=== PATIENT | male | born 1960 | race Caucasian/White ===

== ENCOUNTER → 2021-02-10 11:27 | Outpatient (CLI) | payer OTHER, SELFPAY ==
[2021-02-10 15:26] LABS: Anion Gap 4 (5-15); BUN 11 mg/dL (7-18); BUN/Creat Ratio 10.4 RATIO (10-20); Calcium,Total 9.5 mg/dL (8.5-10.1); Chloride 107 mmol/L (98-107); Cholesterol 238 mg/dL (200); Creatinine, Serum 1.06 mg/dL (0.70-1.30); EST Glomerular Filtration Rate 75 mL/min (>60); Est Glom Filt Rate - Afr Amer 91 mL/min (>60); Glucose 83 mg/dL (74-106); High Density Lipoprotein 55 mg/dL; Potassium 3.7 mmol/L (3.5-5.1); Sodium Level 138 mmol/L (136-145); Thyroid Stim Hormone (TSH) 4.38 uIU/mL (0.358-3.74); Triglycerides 109 mg/dL; Very Low Density Lipoprotein 22 mg/dL (5-40)
[2021-02-11 12:06] LABS: Vitamin D,25 Hydroxy 30.1 ng/mL
== END ==
PROVIDERS: PCP Family Medicine; Referring Provider Family Medicine; Visit Provider Family Medicine
DX: Z00.00 Encounter for general adult medical examination without abnormal findings (principal)
CPT/HCPCS: 36415; 80048; 80061; 82306; 84403; 84443

== ENCOUNTER 2021-03-05 07:19 | Day surgery (SDC) | payer OTHER, SELFPAY ==
[2021-03-05] MEDS: Lactated Ringers 1,000 ML 100 ML IV (07:25)
[2021-03-05 07:40] VITALS: BP 146/86; PULSE 63; RESP 16; TEMP 36.5; O2SAT 97; BMI 25.0
--- NOTE | 2021-03-05 08:03 | H&P.OPEN ---
HPI - General HPI Narrative GEORGES JOSHUA, is a 60 M who presents for screening colonoscopy. His last colonoscopy was 5 years ago and multiple polyps were identified and was recommended for 5-year repeat. Patient is not having any abdominal pain or blood in his stool. He has no family history of colon cancer. [facility] Medical History (Updated 03/05/21 @ 08:[address] David Martel MD) ADHD Alcohol use Smokeless tobacco use Wears glasses Home Medications dextroamphetamine-amphetamine [Adderall] 15 mg PO BID 03/03/21 [History Last Taken Unknown] Allergy/AdvReac Type Severity Reaction Status Date / Time No Known Allergies Allergy Verified 03/03/21 11:53 Surgical History (Updated 03/03/21 @ 12:00 by Rachel Mckinley) H/O cystoscopy Hx of colonoscopy Social History Smoking Status: Current some day smoker tobacco type: smokeless tobacco Past Medical/Surgical History Planned Operation Planned Operative Procedure/s: COLONOSCOPY OPEN ACCESS Previous Hospitalizations/Surgeries HX Hospitalizations: No Any Problems With Anesthesia: No You/Your Family Experience Fever (Hyperthermia) With Anes: No Cholinesterase deficiency: No Cardiovascular Hx of Irregular Heartbeat and/or Afib: No Hx Heart Attack: No Hx Congestive Heart Failure: No Hx Hypertension: No Hx Internal Defibrillator: No Hx Pacemaker: No Respiratory Hx Chronic Obstructive Pulmonary Disease (COPD): No Hx Asthma: No Hx Emphysema: No Hx Sleep Apnea: No Hx Respiratory Tract Infection/Cold (presently): No Do You Snore Loudly (louder than talking or can be heard): Yes Do You Often Feel Tired/ Fatigued/ Sleepy Dring Daytime?: No Has Anyone Observed You Stop Breathing During Sleep?: No Result (for STOP score): Negative Smoking Status: Current some day smoker Gastrointestinal Hx Gastroesophageal Reflux: No Hx Ulcer: No Neurological Hx Seizures: No Hx Multiple Sclerosis: No Hx Parkinson's Disease: No Hx Head/Neck Injury: No Hx Headaches: No Hx Back Injury/Pain: No Does patient have nerve stimulator: No Reproduction : No Psycho/Social Hx Anxiety: No Hx Depression: No Miscellaneous Recent Exposure to Contagious Disease: No Allergies No Known Allergies Allergy (Verified 03/03/21 11:53) Discharge Is Pt Admitted From a Halfway, or a Half-Way: No After D/C, Where Do you Plan to Go: Return Home Vital Signs Vital Signs Vital Signs: 03/05/21 07:40 Temperature 97.7 F L Temperature Source Temporal Pulse Rate 63 Respiratory Rate 16 Respiratory Pattern Normal Blood Pressure 146/86 H Blood Pressure Mean 106 Blood Pressure Source Monitor Blood Pressure Position Semi-Fowlers Blood Pressure Location Right Arm Pulse Ox 97 Oxygen Delivery Method Room Air Weight Weight: 179 lb 0.246 oz Body Mass Index (BMI) 25.0 Physical Exam Const alert and oriented x3 Resp normal respiratory effort and normal air movement Cardio regular rate and regular rhythm GI soft to palpation, non-tender and non-distended Assessment & Plan Assessment/Plan (1) Screen for colon cancer: PLAN: Patient here for screening colonoscopy. I explained endoscopy in detail to the patient. I explained the risks including but not limited to stroke or heart attack with anesthesia, perforation of the GI tract, bleeding, infection. I explained that any of these could necessitate further emergency surgery. The patient understands and all questions were answered sufficiently. The patient wishes to proceed with procedure. David Maretl MD Pager: [facility] [address] [place] [address] [address] [place] [address] Office: Surgery Risks - Colonoscopy Risks Include but are not Limited To: Risks include but are not limited to: Bleeding, perforation requiring further surgery, inability to complete colonoscopy requiring barium enema.
--- NOTE | 2021-03-05 08:30 | COLBX_PTH ---
PATIENT: GEORGES JOSHUA LOC: EN U#:[id number] AGE/SX: 60/M ROOM: RE03/05/[address]: Dr. David Martel MD : 1960 BED: DIS: 03/05/2021 SPEC #: [id number] RECD: 03/05/21 10:29 STATUS: LAVON RESushil #: [id number] RASHI: 03/05/21 08:[address]: David Martel DEPT: SURGICAL PATHOLOGY RECD BY: Italo Boyle ENTERED: 03/05/21 11:45 SP TYPE: COLON BX OTHR DR: Dr. Jonh Mcrae MD Tissues: Descending colon Procedures: Surgery Specimen Level IV HEADER OPERATION: Colonoscopy ? open access (MAC) PRE-OP DIAGNOSIS: Screening colonoscopy TISSUE SUBMITTED: Descending colon polyp MICROSCOPIC DIAGNOSIS Descending colon polyp, biopsy: Tubular adenoma. AM:merry 03/08/2021 COMMENT Case has been reviewed in consultation with Dr. Herndon who concurs with the above diagnosis. IDC:HARRY MICROSCOPIC DESCRIPTION Slides are reviewed. GROSS DESCRIPTION Received in fixative is one container labeled with the patient's name and designated descending colon polyp. The specimen consists of a piece of zavala-pink polyp measuring 0.4 x 0.4 x 0.3 cm. The specimen is totally submitted in one cassette. / HARRY:merry 03/05/21 TC:5 CPT: 21516
[2021-03-05 08:46] VITALS: BP 121/76; BP 140/86; PULSE 58; RESP 16; TEMP 36.6; O2SAT 98
[2021-03-05 08:50] VITALS: BP 119/78; BP 140/86; PULSE 70; RESP 16; O2SAT 97
[2021-03-05 08:55] VITALS: BP 119/77; BP 140/86; PULSE 55; RESP 16; O2SAT 97
[2021-03-05 09:00] VITALS: BP 126/77; BP 140/86; PULSE 63; RESP 16; TEMP 36.4; O2SAT 96
[2021-03-05 09:35] VITALS: BP 140/86
--- NOTE | 2021-03-05 12:12 | OP.COLON_ITS ---
Patient Name: Tree Still Procedure Date: 03/05/2021 8:10 AM Date of : 1960 Age: 60 Procedure: Colonoscopy Indications: High risk colon cancer surveillance: Personal history of colonic polyps Providers: David Martel MD Medicines: Monitored Anesthesia Care Patient Profile: This is a 60 year old male. Refer to note in patient chart for documentation of history and physical. Last Colonoscopy: 5 years ago. Complications: No immediate complications. Procedure: Pre-Anesthesia Assessment: - Prior to the procedure, a History and Physical was performed, and patient medications and allergies were reviewed. The patient's tolerance of previous anesthesia was also reviewed. The risks and benefits of the procedure and the sedation options and risks were discussed with the patient. All questions were answered, and informed consent was obtained. Prior Anticoagulants: The patient has taken no previous anticoagulant or antiplatelet agents. After reviewing the risks and benefits, the patient was deemed in satisfactory condition to undergo the procedure. After I obtained informed consent, the scope was passed under direct vision. Throughout the procedure, the patient's blood pressure, pulse, and oxygen saturations were monitored continuously. The colonoscope was introduced through the anus and advanced to the cecum, identified by appendiceal orifice and ileocecal valve. The colonoscopy was performed without difficulty. The patient tolerated the procedure well. The quality of the bowel preparation was good. Scope In: 8:27:19 AM Scope Withdrawal Time 0 hours 8 minutes 53 seconds Scope Out: 8:42:28 AM Total Procedure Duration Time 0 hours 15 minutes 9 seconds Findings: A small polyp was found in the descending colon. The polyp was removed with a hot snare. Resection and retrieval were complete. The exam was otherwise without abnormality on direct and retroflexion views. Impression: - One small polyp in the descending colon, removed with a hot snare. Resected and retrieved. - The examination was otherwise normal on direct and retroflexion views. Recommendation: - Discharge patient to home. - Resume previous diet. - Continue present medications. - Await pathology results. - Repeat colonoscopy in 5 years for surveillance based on pathology results. Procedure Code(s): --- Professional --- 59573, Colonoscopy, flexible; with removal of tumor(s), polyp(s), or other lesion(s) by snare technique Diagnosis Code(s): --- Professional --- Z86.010, Personal history of colonic polyps D12.4, Benign neoplasm of descending colon CPT copyright 2017 [employer]. All rights reserved. The codes documented in this report are preliminary and upon supply chain technician review may be revised to meet current compliance requirements. David Martel MD 03/05/2021 8:44:59 AM This report has been signed electronically. Number of Addenda: 0 Note Initiated On: 03/05/2021 8:10 AM
--- NOTE | 2021-03-05 12:12 | OP.CCLET_ITS ---
03/05/2021 Jnoh Mcrae MD [address] [id number] Re : Colonoscopy procedure for Tree Still Dear Dr. Mcrae This procedure was performed on Friday, March 05, 2021. My impressions and recommendations are as follows: Impressions : - One small polyp in the descending colon, removed with a hot snare. Resected and retrieved. - The examination was otherwise normal on direct and retroflexion views. Recommendations : - Discharge patient to home. - Resume previous diet. - Continue present medications. - Await pathology results. - Repeat colonoscopy in 5 years for surveillance based on pathology results. My findings are described in the full procedure note, which is enclosed. If I can be of further assistance, please feel free to contact me at Doctor phone number(s): , Work: . Sincerely, David Martel MD 03/05/2021 8:44:59 AM This report has been signed electronically.
== END 2021-03-05 09:46 ==
LOC: EN 07:19 → AC 07:20
PROVIDERS: PCP Family Medicine; Referring Provider Surgery; Visit Provider Surgery
PROC: 0DJD8ZZ Inspection of Lower Intestinal Tract, Via Natural or Artificial Opening Endoscopic (ICD-10-PCS; CPT 45378; principal; 2021-03-05 08:25)
DX: Z12.11 Encounter for screening for malignant neoplasm of colon (principal); D12.4 Benign neoplasm of descending colon; Z86.010 Personal history of colon polyps; F90.9 Attention-deficit hyperactivity disorder, unspecified type; F17.200 Nicotine dependence, unspecified, uncomplicated
CPT/HCPCS: 45385; 87426; 88305; C9803; J7120; J2405

== ENCOUNTER → 2022-08-25 | Outpatient (CLI) | payer OTHER, SELFPAY ==
[2022-08-25 10:01] LABS: Absolute Lymphocyte Count 1.18 X10^3/uL (0.83-4.51); Absolute Neutrophil Count 3.3 X10^3/uL (2.0-7.7); Basophil# 0.04 X10^3/uL; Basophil% 0.7 % (0-1); Eosinophil# 0.26 X10^3/uL; Eosinophils% 4.7 % (0-5); Hemoglobin 15.7 g/dL (13.0-16.5); Lymphocyte # 1.18 X10^3/ul (0.83-4.51); Lymphocyte % 21.5 % (19-41); Mean Corp Hgb Conc 33.4 g/dL (32-36); Mean Corpuscular Volume 92.9 fL (80-94); Mean Platelet Vol. 9.2 fl (6.2-12.0); Monocyte# 0.67 X10^3/uL; Monocyte% 12.2 % (0-10); NRBC Flagged by Analyzer 0 % (0-5); Neutrophil # 3.32 X10^3/uL (2.7-7.7); Neutrophil % 60.4 % (47-70); Platelet Count 214 K/mm3 (150-450); RBC Distribution Width CV 12.1 % (11.6-14.6); RBC Distribution Width SD 41.6 fl (35.1-43.9); Red Blood Count 5.06 M/mm3 (4.6-6.2); White Blood Count 5.5 K/mm3 (4.4-11.0)
[2022-08-25 11:21] LABS: ALB/GLOB Ratio 1.2 RATIO (0.9-2.4); AST(SGOT) 15 U/L (15-37); Alanine Aminotransfer ALT/SGPT 19 U/L (16-61); Albumin, Serum 3.8 g/dL (3.2-5.0); Alkaline Phosphatase 65 U/L (45-117); Anion Gap 8 (5-15); BUN 13 mg/dL (7-18); BUN/Creat Ratio 11.5 RATIO (10-20); Calcium,Total 9.9 mg/dL (8.5-10.1); Chloride 105 mmol/L (98-107); Cholesterol 250 mg/dL (200); Creatinine, Serum 1.13 mg/dL (0.70-1.30); EST Glomerular Filtration Rate 70 mL/min (>60); Est Glom Filt Rate - Afr Amer 84 mL/min (>60); Globulin 3.2 g/dL (2.2-4.2); Glucose 93 mg/dL (74-106); High Density Lipoprotein 52 mg/dL; PSA,Total - Annual Screen 0.87 ng/mL (0.00-4.00); Potassium 4.2 mmol/L (3.5-5.1); Sodium Level 138 mmol/L (136-145); Triglycerides 86 mg/dL; Very Low Density Lipoprotein 17 mg/dL (5-40)
== END | disposition home or self-care (01) ==
LOC: MFPLAB 08:57
PROVIDERS: PCP Family Medicine; Referring Provider Family Medicine; Visit Provider Family Medicine
DX: Z00.00 Encounter for general adult medical examination without abnormal findings (principal); R53.83 Other fatigue; V70.0XXA Driver of bus injured in collision with pedestrian or animal in nontraffic accident, initial encounter
CPT/HCPCS: 36415; 80053; 80061; 84153; 84403; 85025; G0103

== ENCOUNTER → 2023-11-09 | Outpatient (CLI) | payer OTHER, SELFPAY ==
--- NOTE | 2023-11-09 12:52 | CT_ITS ---
STUDY: CT ABDOMEN AND PELVIS WITH CONTRAST REASON FOR EXAM: Male, 62 years old. Unspecified abdominal pain RADIATION DOSAGE (If Supplied By Facility): CTDIvol = ( 14.24 ) mGy, DLP = ( 668.99 ) mGycm TECHNIQUE: Transaxial images were obtained from the dome of the diaphragm to the symphysis pubis without oral contrast. IV 100mL Isovue-300 was administered. Sagittal and coronal images were reconstructed. Individualized dose optimization techniques were used for this CT. COMPARISON: None. FINDINGS: The visualized lung bases are unremarkable. Coronary artery calcification. Normal liver. Normal gallbladder and extrahepatic biliary system. Normal spleen. Normal pancreas. Normal bilateral adrenal glands. Normal right kidney. Normal left kidney. Normal visualized stomach. Normal small intestine. There is circumferential wall thickening with increased markings in the surrounding peritoneal fat in the sigmoid colon. Diverticulosis is seen. A neoplastic process should be ruled out although sigmoid diverticulitis should be considered. Radiographic follow-up is recommended. The appendix is visualized and appears normal. There is scattered atherosclerotic calcification of the abdominal aorta, without a demonstrated aneurysm. Normal inferior vena cava. There is a small retroperitoneal lymphadenopathy with enlarged nodes no greater than 10mm in the short axis diameter. Distended urinary bladder. There is a 3.1 cm x 4.3 cm diverticulum of the urinary bladder posteriorly. There is a small umbilical hernia containing fat. There are minimal degenerative changes of the visualized lumbar spine. CT/Abdomen/Pelvis WITH Contrast IMPRESSION: Circumferential wall thickening with a very colonic inflammatory changes seen in the region of the sigmoid colon as described. Diverticula are seen. A neoplastic process should be ruled out although diverticulitis should be a possibility. Radiographic follow-up recommended. Distended urinary bladder. It is also evidence of a posterior bladder diverticulum. Electronically Signed: Alex Peterson MD at 13:27 EST ,
[2023-11-09 13:08] LABS: CREATININE FINGERSTICK 1.2 mg/dL (0.70-1.30); EGFR FINGERSTICK > 60.0000 mL/min (>60)
== END | disposition home or self-care (01) ==
PROVIDERS: PCP Family Medicine; Referring Provider Family Medicine; Visit Provider Family Medicine
DX: R10.9 Unspecified abdominal pain (principal)
CPT/HCPCS: 74177; Q9967

== ENCOUNTER → 2023-11-09 | Outpatient (CLI) | payer OTHER, SELFPAY ==
[2023-11-09 14:32] LABS: Absolute Lymphocyte Count 0.96 X10^3/uL (0.83-4.51); Absolute Neutrophil Count 5.7 X10^3/uL (2.0-7.7); Basophil# 0.04 X10^3/uL; Basophil% 0.5 % (0-1); Eosinophil# 0.13 X10^3/uL; Eosinophils% 1.7 % (0-5); Hematocrit 45.5 % (40-54); Lymphocyte # 0.96 X10^3/ul (0.83-4.51); Lymphocyte % 12.6 % (19-41); Mean Corpuscular Hgb 31.1 pg (27.0-32.0); Mean Corpuscular Volume 94.4 fL (80-94); Mean Platelet Vol. 9.7 fl (6.2-12.0); Monocyte# 0.77 X10^3/uL; Monocyte% 10.1 % (0-10); NRBC Flagged by Analyzer 0 % (0-5); Neutrophil % 74.7 % (47-70); Platelet Count 206 K/mm3 (150-450); RBC Distribution Width SD 41.9 fl (35.1-43.9); Red Blood Count 4.82 M/mm3 (4.6-6.2); White Blood Count 7.6 K/mm3 (4.4-11.0)
[2023-11-09 14:45] LABS: ALB/GLOB Ratio 0.9 RATIO (0.9-2.4); AST(SGOT) 14 U/L (15-37); Alanine Aminotransfer ALT/SGPT 23 U/L (16-61); Albumin, Serum 3.5 g/dL (3.2-5.0); Alkaline Phosphatase 68 U/L (45-117); Anion Gap 5 (5-15); BUN 14 mg/dL (7-18); BUN/Creat Ratio 12.7 RATIO (10-20); Chloride 105 mmol/L (98-107); EST Glomerular Filtration Rate 71 mL/min (>60); Est Glom Filt Rate - Afr Amer 86 mL/min (>60); Globulin 3.7 g/dL (2.2-4.2); Glucose 98 mg/dL (74-106); Potassium 4.1 mmol/L (3.5-5.1); Protein, Total 7.2 g/dL (6.4-8.2); Sodium Level 139 mmol/L (136-145)
== END | disposition home or self-care (01) ==
LOC: MFPLAB 11:49
PROVIDERS: PCP Family Medicine; Visit Provider Family Medicine
DX: R10.9 Unspecified abdominal pain (principal)
CPT/HCPCS: 36415; 80053; 85025

== ENCOUNTER 2024-07-21 18:07 | Inpatient (IN) | payer OTHER, MEDICARE, SELFPAY ==
[2024-07-21 18:07] VITALS: BP 125/76; PULSE 99; RESP 18; TEMP 37.1; O2SAT 98; BMI 25.3
[2024-07-21 18:32] LABS: Bacteria 0 SEEN /hpf (None Seen); Mucous, Urine 0 SEEN /hpf (<or=2+); Red Blood Cells-Urine 0 SEEN /hpf (0-5); Squamous Epithelial Cells - UA 0 SEEN /hpf (0-5); White Blood Cells 0 SEEN /hpf (0-5)
[2024-07-21 18:33] LABS: Color, Urine Yellow (Yellow); Glucose, Dipstick Normal (Normal); Ketone-Dipstick 5 mg/dl (Negative); Leukocyte Esterase-Dipstick Negative /ul (Negative); Nitrite-Dipstick Negative (Negative); Occult Blood-Urine Negative /ul (Negative); Protein-Dipstick Negative (Negative); Urine Bilirubin Dipstick Negative (Negative); Urine Clarity Clear (Clear); Urine Urobilinogen Normal (Normal)
[2024-07-21 19:11] LABS: Absolute Lymphocyte Count 1.06 X10^3/uL (0.83-4.51); Basophil# 0.03 X10^3/uL; Basophil% 0.3 % (0-1); Eosinophil# 0.13 X10^3/uL; Eosinophils% 1.2 % (0-5); Hematocrit 44.5 % (40-54); Hemoglobin 15.2 g/dL (13.0-16.5); Lymphocyte # 1.06 X10^3/ul (0.83-4.51); Lymphocyte % 9.6 % (19-41); Mean Corp Hgb Conc 34.2 g/dL (32-36); Mean Corpuscular Hgb 31.7 pg (27.0-32.0); Mean Corpuscular Volume 92.7 fL (80-94); Monocyte# 0.83 X10^3/uL; Monocyte% 7.5 % (0-10); NRBC Flagged by Analyzer 0 % (0-5); Neutrophil # 8.99 X10^3/uL (2.7-7.7); Neutrophil % 81.1 % (47-70); Platelet Count 179 K/mm3 (150-450); RBC Distribution Width CV 12.8 % (11.6-14.6); RBC Distribution Width SD 43.7 fl (35.1-43.9); White Blood Count 11.1 K/mm3 (4.4-11.0)
[2024-07-21 19:22] LABS: Anion Gap 5 (5-15); BUN 17 mg/dL (7-18); BUN/Creat Ratio 13.5 RATIO (10-20); Calcium,Total 9.7 mg/dL (8.5-10.1); Chloride 108 mmol/L (98-107); Creatinine, Serum 1.26 mg/dL (0.70-1.30); EST Glomerular Filtration Rate 61 mL/min (>60); Est Glom Filt Rate - Afr Amer 74 mL/min (>60); Estimated Creatinine Clearance 62.25 ml/min; Glucose 132 mg/dL (74-106); Potassium 4.3 mmol/L (3.5-5.1); Sodium Level 141 mmol/L (136-145)
[2024-07-21] MEDS: Ketorolac 15 MG/ML Vial IV ×2 (19:38→23:12)
[2024-07-21] MEDS: Ondansetron 4 MG/2 ML Vial IV (21:11)
[2024-07-21] MEDS: Morphine 4 MG/ML Syringe IV (21:11)
[2024-07-21] MEDS: Piperacil/Tazobactam 3.375 GM in 0.9% Normal Saline (50mL MB+) 50 ML IV (21:13)
[2024-07-21 21:40] VITALS: BMI 25.4
[2024-07-21 21:47] VITALS: BP 110/63; PULSE 89; RESP 18; TEMP 37.5; O2SAT 100
[2024-07-21 21:48] LABS: PSA,Total - Annual Screen 0.65 ng/mL (0.00-4.00)
[2024-07-21] MEDS: 0.9% Normal Saline (1000mL) 1,000 ML 70 ML IV (22:03)
[2024-07-22] MEDS: Piperacil/Tazobactam 3.375 GM in 0.9% Normal Saline (50mL MB+) 50 ML IV ×3 (05:41→22:39)
[2024-07-22 05:48] VITALS: BP 110/67; PULSE 81; RESP 16; TEMP 37.2; O2SAT 94
[2024-07-22 05:58] VITALS: BMI 25.3
[2024-07-22 06:58] LABS: Absolute Lymphocyte Count 0.93 X10^3/uL (0.83-4.51); Absolute Neutrophil Count 8.3 X10^3/uL (2.0-7.7); Basophil# 0.03 X10^3/uL; Basophil% 0.3 % (0-1); Eosinophil# 0.08 X10^3/uL; Eosinophils% 0.8 % (0-5); Hematocrit 42.8 % (40-54); Hemoglobin 14.5 g/dL (13.0-16.5); Lymphocyte # 0.93 X10^3/ul (0.83-4.51); Mean Corp Hgb Conc 33.9 g/dL (32-36); Mean Corpuscular Hgb 31.5 pg (27.0-32.0); Mean Platelet Vol. 9.2 fl (6.2-12.0); Monocyte# 0.98 X10^3/uL; Monocyte% 9.5 % (0-10); NRBC Flagged by Analyzer 0 % (0-5); Neutrophil # 8.26 X10^3/uL (2.7-7.7); Neutrophil % 80.1 % (47-70); Platelet Count 159 K/mm3 (150-450); RBC Distribution Width SD 44.3 fl (35.1-43.9); White Blood Count 10.3 K/mm3 (4.4-11.0)
[2024-07-22 07:57] LABS: AST(SGOT) 14 U/L (15-37); Alanine Aminotransfer ALT/SGPT 16 U/L (16-61); Albumin, Serum 3.2 g/dL (3.2-5.0); Alkaline Phosphatase 55 U/L (45-117); Anion Gap 4 (5-15); BUN 16 mg/dL (7-18); BUN/Creat Ratio 13.8 RATIO (10-20); Calcium,Total 8.7 mg/dL (8.5-10.1); Chloride 110 mmol/L (98-107); Creatinine, Serum 1.16 mg/dL (0.70-1.30); EST Glomerular Filtration Rate 67 mL/min (>60); Est Glom Filt Rate - Afr Amer 81 mL/min (>60); Estimated Creatinine Clearance 65.55 ml/min; Globulin 3.1 g/dL (2.2-4.2); Glucose 115 mg/dL (74-106); Magnesium 2.3 mg/dL (1.6-2.6); Phosphorus 1.9 mg/dL (2.5-4.9); Potassium 3.9 mmol/L (3.5-5.1); Protein, Total 6.3 g/dL (6.4-8.2); Sodium Level 140 mmol/L (136-145)
[2024-07-22 08:40] VITALS: BP 91/65; PULSE 74; RESP 15; TEMP 37.3; O2SAT 94
[2024-07-22] MEDS: 0.9% Normal Saline (500mL Bag) 500 ML 15 ML IV (10:00)
[2024-07-22] MEDS: Potassium Phosphate 40 MM in 0.9% Normal Saline (500mL Bag) 500 ML 62.5 MM IV (11:08)
[2024-07-22] MEDS: Enoxaparin 40 MG/0.4 ML Syringe SC (11:09)
[2024-07-22] MEDS: Tamsulosin HCl 0.4 MG Capsule PO (11:13)
[2024-07-22 11:30] VITALS: O2SAT 96
[2024-07-22 14:16] VITALS: BP 105/61; PULSE 81; RESP 18; TEMP 38.4
[2024-07-22] MEDS: 0.9% Saline Lock 10 ML Syringe IV (14:26)
[2024-07-22] MEDS: Ketorolac 15 MG/ML Vial IV ×2 (14:26→22:38)
[2024-07-22 16:05] VITALS: TEMP 37.1
[2024-07-22 20:15] VITALS: BP 110/69; PULSE 76; RESP 16; TEMP 37.4; O2SAT 99
[2024-07-22] MEDS: MELATONIN 10 MG TABLET PO (22:39)
[2024-07-23 02:04] VITALS: BMI 25.3
[2024-07-23 02:15] VITALS: BP 104/66; PULSE 88; RESP 15; TEMP 37.2; O2SAT 95
[2024-07-23] MEDS: Piperacil/Tazobactam 3.375 GM in 0.9% Normal Saline (50mL MB+) 50 ML IV ×3 (05:11→22:05)
[2024-07-23 07:55] LABS: Hematocrit 43.4 % (40-54); Hemoglobin 14.7 g/dL (13.0-16.5); Mean Corp Hgb Conc 33.9 g/dL (32-36); Mean Corpuscular Hgb 31.7 pg (27.0-32.0); Mean Corpuscular Volume 93.5 fL (80-94); Platelet Count 148 K/mm3 (150-450); RBC Distribution Width CV 12.7 % (11.6-14.6); RBC Distribution Width SD 43.8 fl (35.1-43.9); Red Blood Count 4.64 M/mm3 (4.6-6.2); White Blood Count 9.7 K/mm3 (4.4-11.0)
[2024-07-23 08:18] LABS: Anion Gap 11 (5-15); BUN 17 mg/dL (7-18); BUN/Creat Ratio 18.1 RATIO (10-20); Calcium,Total 9.3 mg/dL (8.5-10.1); Chloride 109 mmol/L (98-107); Creatinine, Serum 0.94 mg/dL (0.70-1.30); EST Glomerular Filtration Rate 85 mL/min (>60); Est Glom Filt Rate - Afr Amer 103 mL/min (>60); Glucose 84 mg/dL (74-106); Magnesium 2.3 mg/dL (1.6-2.6); Phosphorus 2.1 mg/dL (2.5-4.9); Potassium 3.9 mmol/L (3.5-5.1); Sodium Level 140 mmol/L (136-145)
[2024-07-23] MEDS: Enoxaparin 40 MG/0.4 ML Syringe SC (08:27)
[2024-07-23] MEDS: Ketorolac 15 MG/ML Vial IV ×2 (08:30→20:09)
[2024-07-23 08:38] VITALS: BP 119/70; PULSE 86; RESP 16; TEMP 36.8; O2SAT 97
[2024-07-23] MEDS: Sodium Phosphate/Na Biphos 30 MMOL in 0.9% Normal Saline (250mL Bag) 250 ML 62.5 MMOL IV (09:54)
[2024-07-23 11:11] VITALS: BP 109/68; PULSE 80; RESP 16; TEMP 36.6; O2SAT 99
[2024-07-23] MEDS: Lactated Ringers 1,000 ML 75 ML IV (13:48)
[2024-07-23 16:01] VITALS: BP 118/77; PULSE 73; RESP 16; TEMP 36.4; O2SAT 100
[2024-07-23] MEDS: Tamsulosin HCl 0.4 MG Capsule PO (16:57)
[2024-07-23 20:01] VITALS: BP 123/70; PULSE 82; RESP 18; TEMP 37.7; O2SAT 96
[2024-07-23] MEDS: MELATONIN 10 MG TABLET PO (22:05)
[2024-07-24] VITALS (15 sets, daily range): BP systolic 107–128; BP diastolic 60–77; PULSE 60–76; RESP 10–21; TEMP 36.5–36.8; O2SAT 91–100; BMI 28.3
[2024-07-24] MEDS: Lactated Ringers 1,000 ML 75 ML IV ×2 (02:55→20:15)
[2024-07-24] MEDS: Ketorolac 15 MG/ML Vial IV ×2 (04:12→11:41)
[2024-07-24] MEDS: Piperacil/Tazobactam 3.375 GM in 0.9% Normal Saline (50mL MB+) 50 ML IV ×3 (05:47→22:29)
[2024-07-24 07:08] LABS: Absolute Lymphocyte Count 0.78 X10^3/uL (0.83-4.51); Absolute Neutrophil Count 4.9 X10^3/uL (2.0-7.7); Basophil# 0.03 X10^3/uL; Basophil% 0.5 % (0-1); Eosinophil# 0.21 X10^3/uL; Eosinophils% 3.2 % (0-5); Hematocrit 40.1 % (40-54); Hemoglobin 13.4 g/dL (13.0-16.5); Lymphocyte # 0.78 X10^3/ul (0.83-4.51); Lymphocyte % 12.1 % (19-41); Mean Corp Hgb Conc 33.4 g/dL (32-36); Mean Corpuscular Hgb 31.5 pg (27.0-32.0); Mean Corpuscular Volume 94.1 fL (80-94); Mean Platelet Vol. 9.1 fl (6.2-12.0); Monocyte# 0.57 X10^3/uL; Monocyte% 8.8 % (0-10); NRBC Flagged by Analyzer 0 % (0-5); Neutrophil # 4.86 X10^3/uL (2.7-7.7); Neutrophil % 75.1 % (47-70); Platelet Count 141 K/mm3 (150-450); RBC Distribution Width CV 12.5 % (11.6-14.6); RBC Distribution Width SD 43.2 fl (35.1-43.9); Red Blood Count 4.26 M/mm3 (4.6-6.2); White Blood Count 6.5 K/mm3 (4.4-11.0)
[2024-07-24 07:30] LABS: Anion Gap 6 (5-15); BUN 18 mg/dL (7-18); BUN/Creat Ratio 19.3 RATIO (10-20); Calcium,Total 9.1 mg/dL (8.5-10.1); Chloride 109 mmol/L (98-107); Creatinine, Serum 0.93 mg/dL (0.70-1.30); EST Glomerular Filtration Rate 86 mL/min (>60); Est Glom Filt Rate - Afr Amer 104 mL/min (>60); Estimated Creatinine Clearance 89.16 ml/min; Glucose 87 mg/dL (74-106); Sodium Level 140 mmol/L (136-145)
[2024-07-24 09:54] LABS: International Normalized Ratio 1.2
[2024-07-24 09:55] LABS: Partial Thromboplast Time 34.2 Seconds (24.1-36.2)
[2024-07-24] MEDS: Midazolam 2 MG/2 ML Syringe IV (10:37)
[2024-07-24] MEDS: fentaNYL 100 MCG/2 ML Ampul IV (10:39)
[2024-07-24] MEDS: 0.9% Saline Lock 10 ML Syringe IV (10:41)
[2024-07-24] MEDS: Lidocaine 2% (20 ml mdv) 20 ML Vial INFILT (10:58)
[2024-07-24] MEDS: oxyCODONE 5 MG Tablet PO ×2 (14:36→22:29)
[2024-07-24] MEDS: Tamsulosin HCl 0.4 MG Capsule PO (17:17)
[2024-07-24] MEDS: MELATONIN 10 MG TABLET PO (22:29)
[2024-07-25 03:01] VITALS: BP 100/62; PULSE 67; RESP 18; TEMP 37.1; O2SAT 95
[2024-07-25 03:17] VITALS: BMI 25.9
[2024-07-25] MEDS: Piperacil/Tazobactam 3.375 GM in 0.9% Normal Saline (50mL MB+) 50 ML IV ×3 (05:47→21:40)
[2024-07-25 07:26] LABS: Absolute Lymphocyte Count 0.98 X10^3/uL (0.83-4.51); Absolute Neutrophil Count 3.4 X10^3/uL (2.0-7.7); Basophil# 0.03 X10^3/uL; Basophil% 0.6 % (0-1); Eosinophils% 3.9 % (0-5); Hemoglobin 14.2 g/dL (13.0-16.5); Lymphocyte # 0.98 X10^3/ul (0.83-4.51); Lymphocyte % 19.3 % (19-41); Mean Corp Hgb Conc 33.8 g/dL (32-36); Mean Corpuscular Hgb 31.4 pg (27.0-32.0); Mean Corpuscular Volume 92.9 fL (80-94); Mean Platelet Vol. 9.1 fl (6.2-12.0); Monocyte% 9.8 % (0-10); NRBC Flagged by Analyzer 0 % (0-5); Neutrophil # 3.35 X10^3/uL (2.7-7.7); Platelet Count 196 K/mm3 (150-450); RBC Distribution Width CV 12.3 % (11.6-14.6); RBC Distribution Width SD 42.3 fl (35.1-43.9); Red Blood Count 4.52 M/mm3 (4.6-6.2); White Blood Count 5.1 K/mm3 (4.4-11.0)
[2024-07-25 07:58] LABS: Anion Gap 5 (5-15); BUN 8 mg/dL (7-18); BUN/Creat Ratio 7.7 RATIO (10-20); Calcium,Total 9.6 mg/dL (8.5-10.1); Chloride 108 mmol/L (98-107); Creatinine, Serum 1.04 mg/dL (0.70-1.30); EST Glomerular Filtration Rate 76 mL/min (>60); Est Glom Filt Rate - Afr Amer 92 mL/min (>60); Estimated Creatinine Clearance 73.12 ml/min; Glucose 91 mg/dL (74-106); Potassium 4.1 mmol/L (3.5-5.1); Sodium Level 140 mmol/L (136-145)
[2024-07-25 08:11] VITALS: BP 115/64; PULSE 63; RESP 18; TEMP 37; O2SAT 94
[2024-07-25] MEDS: Ketorolac 15 MG/ML Vial IV ×2 (09:30→17:36)
[2024-07-25] MEDS: 0.9% Saline Lock 10 ML Syringe IV ×2 (09:31→17:36)
[2024-07-25 12:11] VITALS: BP 106/69; PULSE 68; RESP 16; TEMP 36.8; O2SAT 97
[2024-07-25 14:11] VITALS: BP 114/67; PULSE 67; RESP 18; TEMP 36.8; O2SAT 96
[2024-07-25] MEDS: Tamsulosin HCl 0.4 MG Capsule PO (16:11)
[2024-07-25 21:36] VITALS: BP 106/70; PULSE 61; RESP 18; TEMP 37; O2SAT 97
[2024-07-25] MEDS: oxyCODONE 5 MG Tablet PO (21:39)
[2024-07-25] MEDS: MELATONIN 10 MG TABLET PO (21:39)
[2024-07-26 01:50] VITALS: BMI 25.9
[2024-07-26 04:30] VITALS: BP 109/66; PULSE 65; RESP 18; TEMP 36.9; O2SAT 97
[2024-07-26] MEDS: Piperacil/Tazobactam 3.375 GM in 0.9% Normal Saline (50mL MB+) 50 ML IV (05:41)
[2024-07-26 08:01] LABS: Absolute Lymphocyte Count 0.99 X10^3/uL (0.83-4.51); Absolute Neutrophil Count 2.2 X10^3/uL (2.0-7.7); Basophil# 0.03 X10^3/uL; Basophil% 0.8 % (0-1); Eosinophil# 0.26 X10^3/uL; Eosinophils% 6.6 % (0-5); Hematocrit 39.8 % (40-54); Hemoglobin 13.2 g/dL (13.0-16.5); Lymphocyte # 0.99 X10^3/ul (0.83-4.51); Lymphocyte % 25.3 % (19-41); Mean Corp Hgb Conc 33.2 g/dL (32-36); Mean Corpuscular Hgb 31.1 pg (27.0-32.0); Mean Corpuscular Volume 93.9 fL (80-94); Mean Platelet Vol. 9.5 fl (6.2-12.0); Monocyte# 0.46 X10^3/uL; Monocyte% 11.7 % (0-10); NRBC Flagged by Analyzer 0 % (0-5); Neutrophil # 2.16 X10^3/uL (2.7-7.7); Neutrophil % 55.1 % (47-70); Platelet Count 176 K/mm3 (150-450); RBC Distribution Width CV 12.3 % (11.6-14.6); RBC Distribution Width SD 42.7 fl (35.1-43.9); Red Blood Count 4.24 M/mm3 (4.6-6.2); White Blood Count 3.9 K/mm3 (4.4-11.0)
[2024-07-26 08:03] VITALS: PULSE 66; O2SAT 97
[2024-07-26 08:09] VITALS: BP 108/71; PULSE 66; RESP 12; TEMP 36.7; O2SAT 97
[2024-07-26 08:34] VITALS: O2SAT 97
[2024-07-26 08:40] LABS: Anion Gap 5 (5-15); BUN 6 mg/dL (7-18); BUN/Creat Ratio 5.7 RATIO (10-20); Calcium,Total 9.4 mg/dL (8.5-10.1); Chloride 112 mmol/L (98-107); Creatinine, Serum 1.05 mg/dL (0.70-1.30); EST Glomerular Filtration Rate 75 mL/min (>60); Est Glom Filt Rate - Afr Amer 91 mL/min (>60); Estimated Creatinine Clearance 72.42 ml/min; Glucose 91 mg/dL (74-106); Potassium 4.1 mmol/L (3.5-5.1); Sodium Level 142 mmol/L (136-145)
[2024-07-26 11:57] VITALS: BP 114/71; PULSE 107; RESP 16; TEMP 37.1; O2SAT 99
== END 2024-07-26 12:16 | disposition home or self-care (01) | DRG 392 ==
LOC: ED 21:08 → MS3 21:29
PROVIDERS: Physician Assistant; Radiology Diagnostic Radiology; Admitting Provider Internal Medicine; Emergency Provider Emergency Medicine; PCP Family Medicine; Visit Provider Internal Medicine
DX: K57.32 Diverticulitis of large intestine without perforation or abscess without bleeding (principal); D69.6 Thrombocytopenia, unspecified; E83.39 Other disorders of phosphorus metabolism; F17.220 Nicotine dependence, chewing tobacco, uncomplicated; K40.90 Unilateral inguinal hernia, without obstruction or gangrene, not specified as recurrent; K42.9 Umbilical hernia without obstruction or gangrene; F15.90 Other stimulant use, unspecified, uncomplicated; E86.0 Dehydration; D72.829 Elevated white blood cell count, unspecified; F90.9 Attention-deficit hyperactivity disorder, unspecified type; Z86.0100 Personal history of colon polyps, unspecified; Z79.01 Long term (current) use of anticoagulants; N32.89 Other specified disorders of bladder; R33.8 Other retention of urine
CPT/HCPCS: 36415; 51702; 74177; 77012; 80048; 80053; 81001; 83735; 84100; 84153; 84443; 85025; 85027; 85610; 85730; 94668; 99156; 99157; 99284; J7030; J7040; J7050; J7120; Q9967; A4216; G0103; J2405

== ENCOUNTER 2024-09-03 09:26 | Day surgery (SDC) | payer OTHER, SELFPAY ==
--- NOTE | 2024-08-27 09:34 | EKG12_ITS ---
Test Reason : PREOP Blood Pressure : */* mmHG Vent. Rate : 66 BPM Atrial Rate : 66 BPM P-R Int : 194 ms QRS Dur : 88 ms QT Int : 422 ms P-R-T Axes : 66 22 34 degrees QTcB Int : 442 ms Normal sinus rhythm Normal ECG Confirmed by CINDI SORIANO, ERIC ([id number]), associate entertainment editor ROBSON KILPATRICK ([id number]) on 08/28/2024 11:18:14 AM Referred By: Prachi Gonzalez Confirmed By: ERIC PUENTE MD
[2024-09-03] VITALS (10 sets, daily range): BP systolic 98–117; BP diastolic 68–86; PULSE 51–64; RESP 14–18; TEMP 36.4–36.7; O2SAT 93–100; BMI 26.2
[2024-09-03] MEDS: 0.9% Normal Saline (1000mL) 1,000 ML 15 ML IV (09:49)
--- NOTE | 2024-09-03 10:11 | PCM.PRE.AN2 ---
ASA Classification* ASA Classification ASA Classification: 2 Assessment & Plan Anesthesia* Anesthesia Assessment Anesthesia Assessment: Discussed sedation and/or anesthesia options, risks, benefits, and alternatives with patient/parents/legal guardian/POA. Questions invited. The patient/parents/legal guardian/POA seems to understand and agrees to proceed with anesthesia plan. Reviewed the physical assessment, medical history, allergy history and patient home medications list prior to surgery/procedure/anesthetic and documented any changes. Performed airway and anesthesia risk assessments. Anesthesia Type Anesthesia Type: General Anesthesia Focused Assessment* Temperature: 97.6 F Pulse Rate: 59 Blood Pressure: 116/80 Respiratory Rate: 18 Pulse Ox: 100 Airway Assessment Mouth opens: >3 cm Mallampati Score: II Focused Labs Anesthesia Preop lab: CBC WBC 3.9 K/mm3 (4.4-11.0) L 07/26/24 06:25 RBC 4.24 M/mm3 (4.6-6.2) L 07/26/24 06:25 Hgb 13.2 g/dL (13.0-16.5) 07/26/24 06:25 Hct 39.8 % (40-54) L 07/26/24 06:25 Plt Count 176 K/mm3 (150-450) 07/26/24 06:25 CHEMISTRY Potassium 4.1 mmol/L (3.5-5.1) 07/26/24 06:25 Sodium 142 mmol/L (136-145) 07/26/24 06:25 Magnesium 2.3 mg/dL (1.6-2.6) 07/23/24 07:37 Phosphorus 2.1 mg/dL (2.5-4.9) L 07/23/24 07:37 BUN 6 mg/dL (7-18) L 07/26/24 06:25 Creatinine 1.05 mg/dL (0.70-1.30) 07/26/24 06:25 Glucose 91 mg/dL (74-106) 07/26/24 06:25 TSH 3.230 uIU/mL (0.358-3.740) 07/22/24 06:05 COAG PT 15.0 SECONDS (11.7-14.9) H 07/24/24 09:27 Pre-Assessment Diagnosis/Proposed Procedure Planned Operative Procedure(s): (R) Lap Robotic Inguinal Hernia w/mesh, poss open poss bilateral Anesthesia History 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 When Was Last Pacemaker Check QUESTION #4 FULL TEXT: You/Your Family Experience fever (hyperthermia) with Anesthesia Last Oral Intake Last Oral intake: Last Oral Intake NPO since 05:00 09/03/24 09:45 Meds taken in AM with sips of water? Meds patient instructed to take am of surgery PONV PONV - lump machine operator: PONV - lump machine operator Female No 08/23/24 10:25 HX of Motion Sickness No 08/23/24 10:25 HX of N/V After Surgery No 08/23/24 10:25 Non-Smoker Yes 08/23/24 10:25 Duration of Surgery greater Yes 08/23/24 10:25 than 60 minutes Number of Risk Factors 2 08/23/24 10:25 PONV Score Moderate Risk 08/23/24 10:25 Height & Weight Height & Weight: Anesthesia: Height & Weight Height 5 ft 10 in 09/03/24 09:45 Weight: 83 kg 09/03/24 09:45 Body Mass Index (BMI) 26.2 09/03/24 09:45 Respiratory Assessment Respiratory Assessment - lump machine operator: Respiratory Tract Infection Hx - lump machine operator Hx Respiratory Tract Infection No 08/23/24 10:25 STOP Sleep Apnea STOP Sleep Apnea - lump machine operator: STOP Sleep Apnea - lump machine operator Hx Hypertension No 08/23/24 10:25 Hx Sleep Apnea No 08/23/24 10:25 CPAP BIPAP Do you snore loudly (louder No 08/23/24 10:25 than talking or can be heard Do you often feel tired/ No 08/23/24 10:25 fatigued/ sleepy during daytime? Has anyone observed you stop No 08/23/24 10:25 breathing during sleep? STOP Results Negative 08/23/24 10:25 QUESTION #5 FULL TEXT : Do you snore loudly (louder than talking or can be heard through closed doors)? 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 Specify any problems Hx of Preganancy in last 3 N/A 08/23/24 10:25 Months Nurse Filling Out Transfusion NBUCHER 08/23/24 10:25 & Questions: Date: 08/23/24 08/23/24 10:25 Time: 10:26 08/23/24 10:25 Patient unable to answer at this time (ie. confused, unrespo /Reproduction History /Reproductive History - lump machine operator: /Reproductive Hx- lump machine operator Hx Now No 08/23/24 10:25 Gestational Age (in weeks): EDC: Hx Hx Para Hx Section SAB No 08/23/24 10:25 Active Medications Active Medications: Current Medications Generic Name Dose Route Start Last Admin Trade Name Freq PRN Reason Stop Dose Admin Cefazolin Sodium 2 gm/ N/A 20 mls @ 400 mls/hr 09/03/24 11:00 IV 09/03/24 11:02 PREOP ONE Sodium Chloride 1,000 mls @ 15 mls/hr 09/03/24 09:40 09/03/24 09:49 IV 09/08/24 22:59 15 mls/hr .Q48H [place] Administration Protocol PFSH Medical History Prostate disease History of diverticulitis Non-smoker Tobacco abuse Abdominal pain Diverticulitis of sigmoid colon BPH (benign prostatic hyperplasia) Acute urinary retention Wears glasses ADHD Alcohol use Smokeless tobacco use Home Medications ?Medication ?Instructions ?Recorded ?Last Taken ?Type tamsulosin 0.4 mg capsule (Flomax) 0.8 mg (2 x 0.4 mg) PO QHS #60 caps 07/26/24 09/02/24 Rx Allergy/AdvReac Type Severity Reaction Status Date / Time No Known Allergies Allergy Verified 09/03/24 09:44 Surgical History H/O transurethral resection of prostate H/O cystoscopy Hx of colonoscopy Social History Smoking Status: Never smoker alcohol intake: current Review of Systems (Anesthesia) ROS Narrative System reviewed and no additional complaints, except as documented.
--- NOTE | 2024-09-03 10:59 | HP.PCM_ITS ---
History and Physical Date of Admission: 09/03/24 Date of Service: 08/19/24 MR#: [id number] Acct: [id number] Name: GEORGES JOSHUA Rep #: [id number] : 1960 Provider: Dr. Prachi Gonzalez MD Age/Sex: 63/M Location: [facility] Status: Signed Intake Vital Signs 08/02/2413:36 08/02/2414:04 08/19/2414:15 Height 5 ft 10 in 5 ft 10 in 5 ft 10 in Weight: 181 lb 181 lb BMI 25.9 25.9 BP 109/63 113/64 Blood Pressure Location Rt brachial Rt brachial Position Sitting Sitting Respiration 16 17 Pulse 65 Pulse Source Monitor Pulse Oximetry (%) 97 Oxygen Delivery Method room air Intake Visit Reasons: 2 W FU [facility], MED CHECK Chief Complaint: 2 week f/u med check Is patient in pain?: No Allergies No Known Allergies Allergy (Verified 08/19/24 13:33) Medications ?Medication ?Instructions ?Recorded ?Confirmed ?Type tamsulosin 0.4 mg capsule (Flomax) 0.8 mg (2 x 0.4 mg) PO QHS #60 caps 07/26/24 08/19/24 Rx Have you fallen in the past year?: No PFSH Medical History Diverticulitis of sigmoid colon Tobacco abuse Acute urinary retention Abdominal pain BPH (benign prostatic hyperplasia) Wears glasses ADHD Alcohol use Smokeless tobacco use Surgical History H/O transurethral resection of prostate H/O cystoscopy Hx of colonoscopy Social History (Updated 08/02/24 @ 13:39 by Roxanna Ramos) Smoking Status: Never smoker alcohol intake: current HPI HPI HPI: 63-year-old male presents for follow-up from hospitalization diverticulitis. Patient denies any further abdominal pain. Patient is still having issues with his right inguinal hernia and it is more bothersome as he has been straight cathing due to lack of tone in the bladder per urology per patient. Patient is interested in having repair of the right gluteal hernia. Did receive patient's previous colonoscopy report from December 26, [address] Hardy states that tubovillous adenoma that was 5 x 5 x 3 mm was removed recommended follow-up colonoscopy in 3 years. ROS General General: Yes weight change and fatigue; No appetite, colon cancer or breast cancer HEENT HEENT: No difficulty swallowing, eye injury, eye surgery, swollen glands or hoarseness Endo Endocrine: No thyroid disease, diabetes mellitus, thyroid cancer, Hair loss, heat intolerance or cold intolerance Skin Skin: No rash or changing moles Musc Musculoskeletal: No back problems, arthritis, rheumatoid arthritis, gout or joint pain Cardio Cardiovascular: No murmur, pacemaker, heart disease, atrial fibrillation, high blood pressure, heart attack, heart stent, palpitations, shortness of breath with exertion or chest pain Psych Psychiatric: No depression, anxiety or hearing voices Resp Respiratory: No shortness of breath, No sleep apnea, No cough, No COPD, No asthma, No emphysema and No wheezing Gastro Gastrointestinal: No abdominal pain, No nausea or vomiting, No diarrhea, No constipation, No blood in stool, No acid reflux, No hemorrhoids, No ulcers, No gallbladder problem and No black,tarry stools Yuan Hematologic: No blood thinners, No blood disorders, No bleeding, No anemia and No blood clots Neuro Neurologic: No numbness and No tingling Exam Const General: cooperative, healthy appearing, comfortable and no acute distress Resp Effort & Inspection: normal respiratory effort Cardio Rate: regular rate GI Inspection: non-distended Palpation: soft, no guarding and nontender External: hernia (Right inguinal-reducible) Neuro General: patient oriented x3 Psych Affect: normal affect Assessment and Plan Assessment and Plan (1) Right inguinal hernia: Status: Acute (2) Diverticulitis of sigmoid colon: Status: Resolved Plan Plan to do a robotic right inguinal hernia repair with mesh, possible bilateral. Reviewed the procedure with the patient including the risks, including but not limited to infection, bleeding, paresthesia, chronic pain, injury to small bowel or contents of the spermatic cord, and recurrence. Patient is had no further questions time. Prachi Gonzalez M.D. Pager: [phone] [facility] [address] [place] [address], [address] [place] [address] Office: [phone] Coding Level of Care Code Off vis,est,level 3 Diagnoses Right inguinal hernia K40.90 Diverticulitis of sigmoid colon K57.32 Clinical Quality Measures Falls Risk Screening/Assistive Devices Have you fallen in the past year?: No 08/21/24 0748 <Electronically signed by Prachi Gonzalez MD> Date Prachi Gonzalez MD
[2024-09-03] MEDS: Cefazolin 2 GM in Syringe IV (12:38)
[2024-09-03] MEDS: Bupivacaine Mpf 0.5% 30 ML VIAL (13:45)
--- NOTE | 2024-09-03 13:56 | PCM.OPRPT ---
Operative Report (Standard) Operative Information Date of Procedure: 09/03/24 Pre-Operative Diagnosis: Right inguinal hernia Post-Operative Diagnosis: Right indirect inguinal hernia Surgery/Procedure Performed: Robotic right inguinal hernia repair with mesh set illustrator: Yes Starch Treating Assistant: Liss Valencia Tasks completed by director of assisted living: Opening & closing Type of Anesthesia: General/Supplemental RN Documented Start/Stop Times: Operation Date: 09/03/24 11:00 Case Time Into Pre-Op 09/03/24 09:30 Out of Pre-Op 09/03/24 12:17 Anesthesia Start 09/03/24 12:19 Into Room 09/03/24 12:19 Procedure Start 09/03/24 12:42 Anesthesia End 09/03/24 13:56 Out of Room 09/03/24 13:56 Procedure End 09/03/24 13:56 Into Recovery 09/03/24 13:58 Out of Recovery 09/03/24 14:48 Into Phase II Recovery 09/03/24 14:50 Out of Phase II 09/03/24 15:54 Procedure Start Time: 12:42 Procedure Stop Time: 13:56 Select all DRAINS/GRAFTS/IMPLANTS that apply: Prosthetic device Prosthetic device details: ProGrip mesh Lot [id number] ref [id number] Special Medications: ancef 2 grams IV x1 Estimated Blood Loss: < 10 cc Specimen collected: No Description of surgery: Indications: 63-year-old male presented with right inguinal hernia which was symptomatic. Robotic right inguinal hernia repair with mesh was elected patient was agreeable. Description of procedure: Patient was brought to operating room placed supine operative table. Timeout was completed verifying correct patient, procedure, site, positioning, special, prior to beginning procedure. General anesthesia was induced. Thornton catheter was placed. Patient's arms were tucked and padded appropriately. Visiport was used to make the incision at Sanford's point in the left upper quadrant. Entry into the abdomen was confirmed visually. Laparoscope was placed. Verifying no injury during initial trocar placement. Patient was placed in Trendelenburg position. Two 8 mm trochars were placed along the horizontal line in the midline and in the right upper quadrant. The initial 5 mm trocar was upsized to an 8 mm well under direct visualization. Both the inguinal regions were inspected and right indirect hernia, no hernia seen on the left were seen. The median umbilical ligament was divided sharply with electrocautery. Peritoneum was incised with the endoscopic scissors along a line 2 cm above the superior edge of the hernia defect extending from the median umbilical ligament to anterior superior iliac spine. Peritoneal flap was mobilized inferiorly using blunt and sharp dissection. The inferior epigastric vessels were exposed and symphysis pubis and identified. The vas deferens and cord vessels were identified and protected throughout the case. A ProGrip mesh was used. The mesh was rolled longitudinally into a compact cylinder and passed through the trocar. The cylinder was placed along the inferior aspect of the working space and unrolled into place to completely cover the direct, indirect and femoral spaces. Care was taken to avoid the inferolateral triangle containing iliac vessels and genital nerves. The peritoneal flap was closed over mesh and secured with 3-0 V-Loc suture. After ensuring adequate hemostasis, the trochars were removed and pneumoperitoneum allowed to escape. The skin was closed with 4-0 Monocryl interrupted sutures and Steri-Strips. Patient's testicles are also confirmed in the scrotum bilaterally. Patient was extubated and Thornton catheter was removed. Patient tolerated procedure well was taken to the postanesthesia care unit in stable condition. Surgical Findings: Right indirect inguinal hernia Complications Complications: No
--- NOTE | 2024-09-03 13:59 | EX.PCM.DISCH ---
Discharge Instructions Diet Discharge Diet: Light diet - advance as tolerated Activity Discharge Activity: May Not Drive (while taking narcotic pain medications.) May shower in (days): 1 Lifting Restrictions: no lifting >20 lbs x 2 wks, no strenuous exercise for 4 wks Additional Activity Instructions:: Recommend wearing scrotal support-boxer or boxer briefs Dressing / Incision Call your doctor if your incision/area has: Continuous Slow Oozing, Sudden Increased Bleeding, Increased Pain/ Swelling, Increased Redness, Foul Smelling Discharge and Swelling at the incision site Call your doctor if you observe: Fever of 101 or Higher Remove Dressing in: 2 days Cleanse incision/area with: Soap & Water Additional Dressing/Incision Instructions:: Steri-Strips will fall off in 7 to 10 days, if they do not fall off okay to remove after 10 days. Follow Up Care Please Follow Up With: Prachi Gonzalez MD When: Call the office for a follow-up appointment 2 weeks; after 5 PM and on the weekends call [phone] with any concerns. Test Results: Test results from this visit will be discussed in further detail at your follow-up appointment, if applicable. Discharge Plan Admission Attending Provider: Prachi Gonzalez Primary Care Provider: Jonh Mcrae Instructions Print Language: [place] Citizen Discharge Orders/Prescriptions Prescriptions: New tramadol 50 mg tablet 50 mg PO Q6H PRN (Reason: pain) 3 Days Qty: 7 0RF Continued tamsulosin [Flomax] 0.4 mg capsule 0.8 mg PO QHS Qty: 60 0RF Other Ambulatory Orders: 12 Lead EKG (Routine) Timeframe: [id number] Location: None Selected Ordered By: Dr. Arnav Toussaint Referrals / Follow Up: Jonh Mcrae MD [Primary Care Provider] - Disposition Disposition (needs filled in before D/C Order can be placed): Home, Self Care
--- NOTE | 2024-09-03 14:03 | PCM.POST.ANE ---
Anesthesia: Postop Eval I Current Vital Signs Temperature: 98.1 F Pulse Rate: 62 Blood Pressure: 117/76 Respiratory Rate: 16 Pulse Ox: 96 Oxygen Delivery Method: Room Air Assessment Airway patent: Yes Spontaneous unlabored respirations: Yes Mental status: Awake nausea: No Vomiting: No Anesthesia Complication: No Fluid Hydration Crystalloid volume administer (ml): 900 Total IV fluid infused: 900 Progress Note Anesthesia document: Postop Eval 1 completed: Yes
[2024-09-03] MEDS: traMADol 50 MG Tablet PO (15:14)
--- NOTE | 2024-09-03 18:52 | POSTOPAN2_ITS ---
Anesthesia Postop Eval I Sum Postop Eval Completion status Anesthesia document: Postop Eval 1 completed: Yes Anesthesia Postop Eval I Summary Anesthesia Postop Eval I Summary: Anesthesia Postop Eval I: Assessment Summary Airway patent Yes 09/03/24 14:03 CHLORINATION OPERATOR.JDEF Spontaneous unlabored Yes 09/03/24 14:03 CHLORINATION OPERATOR.JDEF respirations Mental status Awake 09/03/24 14:03 CHLORINATION OPERATOR.JDEF nausea No 09/03/24 14:03 CHLORINATION OPERATOR.JDEF Vomiting No 09/03/24 14:03 CHLORINATION OPERATOR.JDEF Anesthesia Postop Eval I: Fluid Summary Crystalloid volume administer 900 09/03/24 14:03 CHLORINATION OPERATOR.JDEF (ml) Colloids volume administered ( ml) Blood Product volume administered (ml) Total IV fluid infused 900 09/03/24 14:03 CHLORINATION OPERATOR.JDEF Anesthesia Postop Eval I: Summary Notes Anesthesia Complication No 09/03/24 14:03 CHLORINATION OPERATOR.JDEF Anesthesia Complication Comment: Post-operative progress note Anesthesia: Postop Eval II Evaluation Mental status: Awake Pain Level: 0 nausea: No Vomiting: No
--- NOTE | 2024-09-03 18:52 | PCM.POSTANE2 ---
Anesthesia Postop Eval I Sum Postop Eval Completion status Anesthesia document: Postop Eval 1 completed: Yes Anesthesia Postop Eval I Summary Anesthesia Postop Eval I Summary: Anesthesia Postop Eval I: Assessment Summary Airway patent Yes 09/03/24 14:03 COMPUTER OPERATIONS SUPERVISOR.JDEF Spontaneous unlabored Yes 09/03/24 14:03 COMPUTER OPERATIONS SUPERVISOR.JDEF respirations Mental status Awake 09/03/24 14:03 COMPUTER OPERATIONS SUPERVISOR.JDEF nausea No 09/03/24 14:03 COMPUTER OPERATIONS SUPERVISOR.JDEF Vomiting No 09/03/24 14:03 COMPUTER OPERATIONS SUPERVISOR.JDEF Anesthesia Postop Eval I: Fluid Summary Crystalloid volume administer 900 09/03/24 14:03 COMPUTER OPERATIONS SUPERVISOR.JDEF (ml) Colloids volume administered ( ml) Blood Product volume administered (ml) Total IV fluid infused 900 09/03/24 14:03 COMPUTER OPERATIONS SUPERVISOR.JDEF Anesthesia Postop Eval I: Summary Notes Anesthesia Complication No 09/03/24 14:03 COMPUTER OPERATIONS SUPERVISOR.JDEF Anesthesia Complication Comment: Post-operative progress note Anesthesia: Postop Eval II Evaluation Mental status: Awake Pain Level: 0 nausea: No Vomiting: No
== END 2024-09-03 15:54 | disposition home or self-care (01) ==
LOC: SDC 09:26 → AC 09:28
PROVIDERS: PCP Family Medicine; Referring Provider Surgery; Visit Provider Surgery
PROC: (CPT 49650; principal; 2024-09-03 10:40)
DX: K40.90 Unilateral inguinal hernia, without obstruction or gangrene, not specified as recurrent (principal); K57.32 Diverticulitis of large intestine without perforation or abscess without bleeding; N40.0 Benign prostatic hyperplasia without lower urinary tract symptoms; Z90.79 Acquired absence of other genital organ(s)
CPT/HCPCS: 49650; 00840; 93005; J2405